=== PATIENT | male | born 1995 | race American Indian/Alaskan Native ===

== ENCOUNTER 2022-01-03 22:23 | Emergency (ER) | payer SELFPAY ==
[2022-01-03] MEDS ORDERED: IPRATROPIUM/ALBUTEROL SULFATE 3 ML AMPUL.NEB IH ONE (22:29)
[2022-01-03] MEDS ORDERED: ALBUTEROL 2.5 MG/3 ML NEBU IH ONE (23:43)
[2022-01-03] MEDS ORDERED: IPRATROPIUM 0.02% NEBU 2.5 ML IH ONE (23:44)
[2022-01-03] MEDS ORDERED: methylPREDNISolone Sod Succinate 125 MG/2 ML INJ IV ONE (23:56)
[2022-01-03] MEDS ORDERED: MAGNESIUM SULFATE 2 GM/50 ML BAG IV ONE (23:56)
--- NOTE | 2022-01-04 | Emergency Department Report ---
ED Asthma HPI - General Chief Complaint: Adult Asthma Stated Complaint: MADELINE Time Seen by Provider: 01/03/22 23:25 Source: patient Mode of arrival: Ambulatory Limitations: No Limitations - History of Present Illness Initial Comments: 26-year-old morbidly obese male with a history of asthma who now presents with shortness of breath associated with wheezing that started couple of days progressively getting worse. Patient denies any fever or chills. No other modifying or associated factors reported. MD Complaint: "asthma attack" - Related Data Previous Rx's Medication Instructions Recorded Last Taken Type ALBUTEROL NEB's [Proventil 0.083% 2.5 mg IH TID PRN 2 Days #5 neb NS 01/04/22 Unknown Rx NEBS] predniSONE [Deltasone] 20 mg PO QDAY 7 Days #7 tab NS 01/04/22 Unknown Rx Allergies Allergy/AdvReac Type Severity Reaction Status Date / Time No Known Allergies Allergy Verified 01/03/22 22:28 ED Review of Systems ROS: Stated complaint: MADELINE Other details as noted in HPI Comment: All other systems reviewed and negative Respiratory: shortness of breath, wheezing ED Past Medical Hx - Medications Home Medications: Home Medications Medication Instructions Recorded Confirmed Last Taken Type ALBUTEROL NEB's [Proventil 0.083% 2.5 mg IH TID PRN 2 Days #5 neb NS 01/04/22 Unknown Rx NEBS] predniSONE [Deltasone] 20 mg PO QDAY 7 Days #7 tab NS 01/04/22 Unknown Rx ED Physical Exam - General Limitations: No Limitations General appearance: alert, in distress (Due to difficulty of breath), obese (Morbidly obese) - Head Head exam: Present: normal inspection - Eye Eye exam: Present: normal appearance Pupils: Present: normal accommodation - ENT ENT exam: Present: normal exam, normal orophraynx, mucous membranes moist - Neck Neck exam: Present: normal inspection, full ROM. Absent: tenderness - Respiratory Respiratory exam: Present: wheezes - Cardiovascular Cardiovascular Exam: Present: regular rate, normal rhythm, normal heart sounds - GI/Abdominal GI/Abdominal exam: Present: soft, normal bowel sounds. Absent: distended, tenderness - Extremities Exam Extremities exam: Absent: tenderness - Back Exam Back exam: Absent: tenderness - Neurological Exam Neurological exam: Present: alert, oriented X3 - Psychiatric Psychiatric exam: Present: normal affect - Skin Skin exam: Present: warm, dry ED Course Vital Signs 01/03/22 01/03/22 22:28 23:50 Temperature 98.2 F Pulse Rate 102 H Pulse Rate [ 108 H Bilateral] Respiratory 18 Rate Respiratory 18 Rate [Bilateral ] Blood Pressure 152/93 O2 Sat by Pulse 92 Oximetry ED Medical Decision Making - Medical Decision Making With asthma--likely an exacerbation we will go ahead and give breathing treatment DuoNeb, and get a chest x-ray to rule out any pulmonary infection as a cause--also will give Solu-Medrol 125 mg IV x1 and magnesium sulfate 2 g IV x1--for symptomatic relief Critical care attestation.: If time is entered above; I have spent that time in minutes in the direct care of this critically ill patient, excluding procedure time. ED Disposition Clinical Impression: Asthma with exacerbation Qualifiers: Asthma severity: unspecified severity Asthma persistence: unspecified Qualified Code(s): J45.901 - Unspecified asthma with (acute) exacerbation Disposition: HOME / SELF CARE / HOMELESS Is pt being admited?: No Does the pt Need Aspirin: No Condition: Stable Instructions: Asthma, Adult, [id number], Asthma Attack Prevention, Adult Additional Instructions: It is very important that you call and follow-up with your primary doctor whom I recommend getting evaluation for sleep apnea with sleep study Take and complete your prednisone as prescribed Please do not hesitate to call or return to emergency room if your symptoms worsen Prescriptions: predniSONE [Deltasone] 20 mg PO QDAY 7 Days #7 tab NS ALBUTEROL NEB's [Proventil 0.083% NEBS] 2.5 mg IH TID PRN 2 Days #5 neb NS PRN Reason: Wheezing Referrals: PRIMARY CARE, [Primary Care Provider] - 3-5 Days Time of Disposition: 01:28
--- NOTE | 2022-01-04 00:40 | XRay Report ---
CHEST 1 VIEW INDICATION / CLINICAL INFORMATION: sob. COMPARISON: None available. FINDINGS: SUPPORT DEVICES: None. HEART / MEDIASTINUM: Heart size is within normal limits. Mediastinal contour demonstrates no signific ant abnormality. LUNGS / PLEURA: Lungs are clear for degree of inspiration and technique utilized. Mild elevation of t he right hemidiaphragm. BONES: No significant osseous abnormality. ADDITIONAL FINDINGS: No significant additional findings. IMPRESSION: 1. No active cardiopulmonary disease. Signer Name: Smith Almaguer II, MD Signed: 01/04/2022 12:35 AM Workstation Name: [id number]
[2022-01-04 02:22] VITALS: BP 159/100
== END 2022-01-04 02:42 | disposition home or self-care (01) ==
LOC: ED 22:23
DX: J45.901 Unspecified asthma with (acute) exacerbation (principal)
CPT/HCPCS: 71045; 94644; 96365; 96375; 99283; J2930; J3475